=== PATIENT | male | born 1985 | race Caucasian/White ===

== ENCOUNTER 2020-06-28 07:52 | Outpatient (CLI) | payer OTHER ==
[2020-06-28] MEDS ORDERED: Magnevist 469MG/ML 20 ML VIAL ONE (09:02)
== END 2020-06-28 07:53 | disposition home or self-care (01) ==
LOC: BICMRI 07:52
PROVIDERS: ATTEND Family Medicine
DX: M47.22 Other spondylosis with radiculopathy, cervical region (principal)
CPT/HCPCS: 72156; A9579

== ENCOUNTER 2022-09-25 12:55 | Day surgery (SDC) | payer OTHER, SELFPAY ==
[2022-09-22 10:09] VITALS: BMI 23.7
[2022-09-25] MEDS ORDERED: Bupivacaine PF 0.5% 30 ML VIAL ONE (15:25)
[2022-09-25] MEDS ORDERED: Bacitracin Zinc Ointment 30 gm TUBE ONE (15:25)
[2022-09-25] MEDS ORDERED: CEFAZOLIN 2 GM VIAL ONE (15:38)
[2022-09-25] MEDS ORDERED: Sodium Chloride 0.9% 100 ML ONE (15:39)
[2022-09-25] MEDS ORDERED: Midazolam HCl 2 mg/2 ml Vial ONE ×2 (15:47→15:58)
[2022-09-25] MEDS ORDERED: fentaNYL 50 mcg/mL 1 mL Vial ONE (15:48)
[2022-09-25] MEDS ORDERED: Ondansetron PF 4 MG/2 ML Vial ONE (15:53)
[2022-09-25] MEDS ORDERED: Ketorolac Tromethamine 30 MG/ML VIAL ONE (16:33)
== END 2022-09-25 17:30 | disposition home or self-care (01) ==
LOC: SDC 12:55
PROVIDERS: ATTEND Orthopaedic Surgery Hand Surgery
PROC: 0QP104Z Removal of Internal Fixation Device from Sacrum, Open Approach (ICD-10-PCS; principal; 2022-09-25)
DX: T84.84XA Pain due to internal orthopedic prosthetic devices, implants and grafts, initial encounter (principal); S63.592A Other specified sprain of left wrist, initial encounter; M65.9 Synovitis and tenosynovitis, unspecified; F41.9 Anxiety disorder, unspecified; F32.A Depression, unspecified; K21.9 Gastro-esophageal reflux disease without esophagitis; F90.9 Attention-deficit hyperactivity disorder, unspecified type; Z87.891 Personal history of nicotine dependence; Z79.899 Other long term (current) drug therapy
CPT/HCPCS: J1885; J2250; J2405; J3010; J3490; S0020